=== PATIENT | female | born 2005 | race Caucasian/White ===

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

== ENCOUNTER 2025-08-24 13:40 | Outpatient (REF) | payer OTHER, SELFPAY ==
--- OUTSIDE RECORDS SUMMARY | 2025-08-24 16:53 | XMS_ITS | Clinical Summary ---
Author Organization [facility] Address [address] [place] [address] Care Team Providers Care Assembler Gold Frame Name Role Phone Jackie Jones MD Primary Care Provider [phone] Source Comments Please note that some or all of the patient's information could have additional privacy protections. State laws allow health care providers to render certain types of treatment to minors without parental consent. Please do not assume that this information can be shared solely by obtaining just the consent of the patient's parent/guardian. Please determine if all or part of the patient's care was rendered without parent/guardian involvement. And, if so, obtain the minor's consent prior to disclosure.[facility] Allergies Active Allergy Reactions Criticality Noted Date Comments Seasonal 05/14/2023 Medications ibuprofen (MOTRIN) 600 MG tablet Take by mouth every 6 (six) hours as needed for Pain Active fluticasone propionate (FLONASE) 50 mcg/actuation nasal spray 2 sprays by Nasal route in the morning. Active loratadine (CLARITIN) 10 mg tablet Take 10 mg by mouth in the morning. 3 Active hyoscyamine (LEVSIN) 0.125 mg tabletIndication s:Generalized abdominal pain Take 1 tablet (0.125 mg) by mouth every 6 (six) hours as needed for Cramping 60 tablet 2 3 Active omeprazole (PRILOSEC) 40 MG capsuleIndicatio ns:Generalized abdominal pain,Weight loss,Loose stools Take 1 capsule (40 mg) by mouth daily 30 capsule 1 4 Active Additional Information Patient not taking.Reported on 06/15/2025 cyproheptadine (PERIACTIN) 4 mg tabletIndication s:Generalized abdominal pain,Weight loss,Loose stools Take 1 tablet (4 mg) by mouth nightly 30 tablet 2 4 Active Additional Information Patient not taking.Reported on 09/16/2024 ergocalciferol (VITAMIN D2) 1,250 mcg (50,000 unit) capsuleIndicatio ns:Vitamin D deficiency Take 1 capsule (50,000 Units) by mouth once a week 12 capsule 4 Active Additional Information Patient not taking.Reported on 09/16/2024 meclizine (ANTIVERT) 12.5 mg tablet TAKE ONE TABLET BY MOUTH THREE TIMES A DAY NEEDED FOR DIZZINESS FOR 14 DAYS 4 Active hyoscyamine (LEVSIN/SL) 0.125 mg SL tabletIndication s:Generalized abdominal pain Take 1 tablet (0.125 mg) by mouth 3 (three) times daily as needed for Cramping 90 tablet 2 4 Active chlorhexidine (PERIDEX) 0.12 % solution RINSE MOUTH WITH 15ML (1 CAPFUL) FOR 30 SECONDS IN MORNING AND EVENING AFTER BRUSHING, THEN SPIT 5 Active omeprazole (PRILOSEC) 40 MG capsuleIndicatio ns:Nausea and vomiting, unspecified vomiting type Take 1 capsule (40 mg) by mouth in the morning. 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 Nausea and vomiting, unspecified vomiting type 0 12/22/2024 Generalized abdominal pain 12/22/2024 Encounters Date Type Department Care Team Description 08/13/2025 Telephone [facility], [place] [address] [place] [address] 2[address] Floor, [address] [place] [address] Hailey Ness, Farm Appraiser 07/21/2025 3:33 PM EDT Anesthesia Event [facility] [address] [place] [address] Carson Knowles MD Breitmaier, Mallory, NP 07/21/2025 2:56 PM EDT - 07/21/2025 3:28 PM EDT Surgery [facility] [address] [place] [address] Renny Wade MD PANENDOSCOPY/EGD/U PPER ENDOSCOPY 07/21/2025 2:35 PM EDT Ancillary Procedure [facility] [address] [place] [address] Renny Wade MD 07/21/2025 1:48 PM EDT - 07/21/2025 4:52 PM EDT Hospital Encounter [facility] [address] [place] [address] Renny Wade MD Discharge Disposition: Home or Self Care 06/15/2025 11:00 AM EDT Office Visit [facility], [place] [address] [place] [address] Perri Herrera MD Vitamin D deficiency (Primary Dx); Loose stools; Abnormal gastric folds from Last 3 Months Family History Medical History Relation Name Comments Eyeglasses as a child Maternal Aunt Eyeglasses as a child Maternal Grandfather Eyeglasses as a child Maternal Grandmother Cholelithiasis Mother JORGE LUIS disease Mother Irritable bowel syndrome Mother Anesthesia problems Neg Hx Relation Name Status Comments Maternal Aunt Maternal Grandfather Maternal Grandmother Mother Social History Tobacco Use Types Packs/Day Years Used Date Smoking Tobacco: Never Passive Smoke Exposure: Current Smokeless Tobacco: Never Tobacco Cessation:Counseling Given: Not Answered Comments No Sex and Gender Information Value Date Recorded Sex Assigned at Not on file Legal Sex Female 1:34 PM EDT Gender Identity Not on file Sexual Orientation Not on file Last Filed Vital Signs Vital Sign Reading Time Taken Comments Blood Pressure 92/66 07/21/2025 4:34 PM EDT Pulse 66 07/21/2025 4:34 PM EDT Temperature 36.3 C (97.3 F) 07/21/2025 3:49 PM EDT Respiratory Rate 14 07/21/2025 4:34 PM EDT Oxygen Saturation 100% 07/21/2025 4:34 PM EDT Inhaled Oxygen Concentration - - Weight 41.7 kg (91 lb 14.9 oz) 07/21/2025 2:18 P M EDT Height 155.5 cm (5' 1.22 ) 07/21/2025 2:18 PM ED T Body Mass Index 17.25 07/21/2025 2:18 PM EDT Plan of Treatment Upcoming Encounters Date Type Department Care Team (Late st Contact Info) Description 09/08/2025 9:00 AM EDT Office Visit [facility], [place] [address] [place] [address] Perri Herrera MD [address] [place] [address] Health Maintenance Due Date Last Done Comments DTaP/TDAP/TD VACCINES (1 - Tdap) 2012 ADOLESCENT HIV SCREENING 2018 COVID-19 Vaccine (2023-2 5 season) 2025 INFLUENZA (#1) 2025 NIRSEVIMAB VACCINES UNDER 8 MONTHS Aged Out No longer eligible based on patient's age to complete this topic Procedures Procedure Name Priority Date/Time Associated Diagnosis Comments MI ESOPHAGOGASTRODUODENOSCOP Y TRANSORAL DIAGNOSTIC 07/21/2025 3:27 PM EDT Abnormal gastric folds Special Needs HP bedside Dr Herrera / pt can sign consent / patient could not remember the recovery period post dental work under anesthesia and that scared her when asked her about anesthesia history ES INTRAOPERATIVE IMAGING Routine 2024 2:31 PM EDT POCT, , URINE(ED&IP) Routine 2:16 PM EDT SURGICAL PATHOLOGY EXAM Routine 07/21/20 12:00 AM EDT from Last 3 Months Results * ES Intraoperative Imaging (07/21/2025 2:31 PM EDT) Narrative 07/21/2025 2:31 PM EDT NOTE: These images were obtained as part of an Operating Room procedure. An interpretation of these images in not included in the Radiology PACS system. Please refer to Operative Notes. us Renny Wade MD OR ENDO IMAGING Final Result * POCT,,urine(ED&IP) (07/21/2025 2:16 PM EDT) Preg Test, Ur Negative Negative [facility] Lot Number [id number] [facility] QC Check [facility] Urine URINE SPECIMEN / Unknown 07/21/2025 2:16 PM EDT us Renny Wade MD POINT OF CARE TEST ORDERABLES Final Result [facility] CLIA ID: [id number] State ID: [id number] [place] [address] * Surgical pathology exam (07/21/2025 12:00 AM EDT) REPORT [facility] CLIA ID [id number] [address] [place] [address] / [phone] Surgical Pathology Report PATIENT NAME: HOMA DE [facility] REC NUMBER: [id number] (AGE): 2005 (Age: 19) SPECIMEN NUMBER: [id number] DATE OBTAINED: 07/21/2025 DIAGNOSIS A. DUODENUM, BIOPSY: DUODENAL MUCOSA WITH NO SPECIFIC PATHOLOGIC CHANGES; NO VILLOUS BLUNTING OR INCREASED INTRAEPITHELIAL LYMPHOCYTES IDENTIFIED. B. STOMACH, BIOPSY: ANTRAL AND OXYNTIC MUCOSA WITH NO SPECIFIC PATHOLOGIC CHANGES; NO INFLAMMATION; NO HELICOBACTER PYLORI ORGANISMS IDENTIFIED ON H&E STAIN. C. ESOPHAGUS, BIOPSY: SQUAMOUS MUCOSA WITH FOCAL MILD CHRONIC INFLAMMATION; NO EOSINOPHILS. dg/07/23/2025 Electronically Signed Out CLEMENTINA CHOWDHURY MD COMMENT [id number] x [id number] Clinical Information and History: Abd pain Tissue(s) Submitted: A: DUODENUM B: STOMACH C: ESOPHAGUS Gross Description: Specimen A is received in formalin labeled per the requisition as duodenum and consists of two portillo-white to portillo-pink irregular soft tissues measuring 0.3 cm and 0.4 cm. The specimen is submitted in toto labeled A1. Specimen B is received in formalin labeled per the requisition as stomach and consists of two portillo-white to portillo-pink irregular soft tissues measuring 0.2 cm and 0.5 cm. The specimen is submitted in toto labeled B1. Specimen C is received in formalin labeled per the requisition as esophagus and consists of two portillo-white to portillo-pink irregular soft tissues measuring 0.3 cm and 0.4 cm. The specimen is submitted in toto labeled C1. [facility] 07/21/2025 07/22/2025 8:4 1 AM EDT us Renny Wade MD PATHOLOGY/CYTOLOGY ORDERABLES Final Result [facility] [address] [place] [address], [facility] [phone] from Last 3 Months Insurance [employer] [address] [place], [place] [address] Care Teams Assembler Gold Frame Relationship Specialty Start Date End Date Jackie Jones MD [address] [facility] [address] [place] [address] PCP - General General Pediatrics 02/04/23
== END 2025-08-24 13:41 | disposition home or self-care (01) ==
LOC: HO.LAB 13:40
PROVIDERS: PCP Pediatrics; Visit Provider Pediatrics Pediatric Gastroenterology
DX: R19.5 Other fecal abnormalities (principal)
CPT/HCPCS: 36415; 82306